=== PATIENT | female | born 1930 | race Caucasian/White ===

== ENCOUNTER 2016-05-28 19:20 | Emergency (ER) | payer MEDICARE ==
[2016-05-28 19:34] VITALS: BP 143/75
--- NOTE | 2016-05-28 19:50 | UC ---
Complaint Female HPI - HPI Summary HPI Summary: The patient comes in today for: 1. Urinary frequency: Onset: Yesterday. Palliative/provocative: Nothing makes her symptoms better or worse. Quality: No pain. Region: Severity: 0/10 Time: Comes and goes. Associated symptoms: Last urinary tract infection--"quite a few years ago." Fevers: None. Urinary urgency: Present. Recent antibiotics: None. * - History Of Current Complaint Chief Complaint: UCGU Stated Complaint: FREQ URINATING Time Seen by Provider: 05/28/16 19:38 Hx Obtained From: Patient - Allergies/Home Medications Allergies/Adverse Reactions: Allergies Allergy/AdvReac Type Severity Reaction Status Date / Time Sulfa Drugs AdvReac Intermediate Vomiting Verified 05/28/16 19:34 Sulfa Antibiotics AdvReac Vomiting Verified 05/28/16 19:34 PMH/Surg Hx/FS Hx/Imm Hx Previously Healthy: No Endocrine History Of: Reports: Diabetes, Thyroid Disease, Hypothyroidism, Dyslipidemia Cardiovascular History Of: Reports: Hypertension Denies: Cardiac Disorders, Pacemaker/ICD, Myocardial Infarction, Congestive Heart Failure, Atrial Fibrillation, Deep Vein Thrombosis, Bleeding Disorders Respiratory History Of: Denies: COPD, Asthma, Bronchitis, Pneumonia, Pulmonary Embolism GI/ History Of: Reports: Gastroesophageal Reflux Denies: Ulcer, Gastrointestinal Bleed, Gall Bladder Disease, Kidney Stones, Diverticulitis, Renal Disease, Urosepsis Neurological History Of: Denies: TIA, CVA, Dementia, Seizures, Migraine Psychological History Of: Reports: Anxiety Denies: Depression, Bipolar Disorder, Schizophrenia, Post Traumatic Stress Disorder Cancer History Of: Denies: Lung Cancer, Colorectal Cancer, Breast Cancer, Prostate Cancer, Cervical Cancer Other History Of: Negative For: HIV, Hepatitis B, Hepatitis C, Anticoagulant Therapy - Surgical History Surgical History: None Surgery Procedure, Year, and Place: THYROID?; TUBAL LIGATION - Family History Known Family History: Positive: Cardiac Disease, Hypertension - Social History Occupation: Retired Alcohol Use: Occasionally Substance Use Type: None Smoking Status (MU): Never Smoked Tobacco Have You Smoked in the Last Year: No - Immunization History Most Recent Influenza Vaccination: 2014 Most Recent Tetanus Shot: pt states up to date Most Recent Pneumonia Vaccination: received in 2011 per pt Review of Systems Constitutional: Negative Skin: Negative Eyes: Negative ENT: Negative Respiratory: Negative Cardiovascular: Negative Gastrointestinal: Negative Genitourinary: Frequency, Urgency All Other Systems Reviewed And Are Negative: Yes Physical Exam Triage Information Reviewed: Yes Appearance: Well-Appearing, No Pain Distress, Well-Nourished Vital Signs: Initial Vital Signs Temp 98.6 F 05/28/16 19:31 Pulse 70 05/28/16 19:31 Resp 12 05/28/16 19:31 BP 143/75 05/28/16 19:31 Vital Signs Reviewed: Yes Eyes: Positive: Conjunctiva Clear. Negative: Discharge ENT: Positive: Hearing grossly normal. Negative: Nasal congestion, Nasal drainage, TM bulging, TM dull, TM red Dental: Negative: Gross Decay/Caries @, Dental Fracture @ Neck: Positive: Supple, Nontender, No Lymphadenopathy. Negative: Nuchal Rigidity Respiratory: Positive: Lungs clear, No respiratory distress, No accessory muscle use. Negative: Crackles, Wheezing Cardiovascular: Positive: RRR, No Murmur Abdomen Description: Positive: Nontender, No Organomegaly, Soft. Negative: Distended, Guarding Musculoskeletal: Positive: Strength Intact, ROM Intact, No Edema Neurological: Positive: Alert, Muscle Tone Normal Psychological: Positive: Normal Response To Family, Age Appropriate Behavior Skin: Negative: rashes, breakdown Diagnostics - Laboratory Diagnostic Studies Completed/Ordered: Urine screen: Specific gravity: 1.005. WBC: (-). Nitrite: (-). Blood: (-). Glucose: (-). Protein: (-) Complaint Female Dx - Course Course Of Treatment: Patient was told of the urine screen results. She was told that there are many reasons why someone can have frequent urination. She states that she has not been able to put in her pessary like she has before. She asked if her not being able to put her pessary in may cause this and she was told that it may. She asked if we can put it back in. She was told that we can try, but it is not something that we usually do here at urgent care, but we could certainly try. However, at this time, she wants to wait to have her pessary doctor put it in. She will call after the . - Differential Dx/Diagnosis Provider Diagnoses: Frequent urination, etiology undetermined. Discharge - Discharge Plan Condition: Stable Disposition: HOME Referrals: Lela Vega MD [Primary Care Provider] - 1 Week (Please see your primary care provider early next week to see how well you are doing. If you get worse, please be seen sooner in the ER or through us.) Additional Instructions: Diagnosis: Frequent urination (urinary track infection and glycosuria ruled out ).
== END 2016-05-28 20:02 | disposition home or self-care (01) ==
LOC: UCEAST 19:20
DX: R35.0 Frequency of micturition (principal); E11.9 Type 2 diabetes mellitus without complications; E03.9 Hypothyroidism, unspecified; E78.5 Hyperlipidemia, unspecified; I10 Essential (primary) hypertension; K21.9 Gastro-esophageal reflux disease without esophagitis; F41.9 Anxiety disorder, unspecified; Z88.2 Allergy status to sulfonamides
CPT/HCPCS: 81003; 99211; G0463

== ENCOUNTER 2017-05-30 09:56 | Day surgery (SDC) | payer MEDICARE ==
[~2017-05-30 09:56] MED LIST: Buffered Lidocaine 0.9% SYRIN* 5 ML/SYR SYRINGE INTRADERM ONE; Cyclopentolate 1% OPTH.SOL* 2 ML BTL ONE; Ketorolac 0.5% OPHTH (NF) 0.5 % 5 ML BTL ONE; Lidocaine 1% MPF* 2 ML VIAL ONE; Neomycin/Polymy/Dex OPHTH.OIN* 3.5 GM ONE; Phenylephrine 2.5% OPTH.SOL* 2 ML BTL ONE; Tetracaine 0.5% OPTH.SOL 4 ML* 1 DROP BTL ONE; Tropicamide 1% OPTH.SOL* BTL ONE
[2017-05-30] MEDS ORDERED: Phenylephr/Ketorolac 1%/0.3% OPH DROP BTL ONE (10:45)
[2017-05-30 12:19] VITALS: BP 123/88
--- NOTE | 2017-05-30 12:50 | OP ---
DATE OF OPERATION/DATE OF DICTATION: 05/30/2017 - [facility] DATE OF : 1930. SURGEON: Dr. Nathaniel Rodriguez. INSPECTION MACHINE TENDER: None. ANESTHESIA: Topical with intravenous sedation. PRE-OP DIAGNOSIS: Cataract, left eye. POST-OP DIAGNOSIS: Cataract, left eye. OPERATIVE PROCEDURE: Phacoemulsification and cataract extraction with posterior chamber intraocular lens implant, left eye. COMPLICATIONS: None. BLOOD LOSS: None. DESCRIPTION OF PROCEDURE: The patient was brought to the operating room and received a small amount of intravenous sedation. A drop of Tetracaine was placed in her left eye. She was prepped and draped in the usual sterile fashion for ophthalmic surgery and attention was directed to the left eye where a speculum was placed. A paracentesis was created at the 5 o'clock position and 0.1 cc of 1 percent preservative-free Lidocaine was injected into the anterior chamber followed by DisCoVisc. The eye was digitally stabilized while a 2.75 mm keratome was used to create a triplanar clear corneal incision at the 3 o'clock position. A continuous curvilinear capsulorrhexis was created with a cystotome and Utrata forceps. BSS on a cannula was used to hydrodissect the lens from the capsule. Phacoemulsification was performed in a divide-and- conquer technique to create four fragments which were removed. Residual cortical material was removed with irrigation and aspiration. DisCoVisc was used to inflate the capsular bag and an AUOOTO 23.0 diopter lens was folded and inserted into the capsular bag. DisCoVisc was removed using irrigation and aspiration. BSS on a cannula was used to hydrate the corneal stroma and seal the wound. At the end of the case the pupil was round and the lens was centered. The eye was of normal pressure and the wound was water tight. The speculum was removed and topical Maxitrol ointment was placed on the surface of the eye. The eye was closed, patched and shielded and the patient was sent to the recovery room in stable condition with post operative instructions and follow-up appointment given. [id number]/CPS #: [id number] MTDD
== END 2017-05-30 12:22 | disposition home or self-care (01) ==
LOC: OREAST 09:56
PROVIDERS: ATTEND Ophthalmology
DX: H25.12 Age-related nuclear cataract, left eye (principal); E11.9 Type 2 diabetes mellitus without complications; Z79.84 Long term (current) use of oral hypoglycemic drugs; Z87.891 Personal history of nicotine dependence; N18.3 Chronic kidney disease, stage 3 (moderate); I12.9 Hypertensive chronic kidney disease with stage 1 through stage 4 chronic kidney disease, or unspecified chronic kidney disease; M35.3 Polymyalgia rheumatica
CPT/HCPCS: A9270-GY; C9447; V2632

== ENCOUNTER 2017-06-06 06:40 | Day surgery (SDC) | payer MEDICARE ==
[~2017-06-06 06:40] MED LIST changes: +Acetaminophen TAB* 325 MG PO PRN; -Cyclopentolate 1% OPTH.SOL* 2 ML BTL ONE; -Ketorolac 0.5% OPHTH (NF) 0.5 % 5 ML BTL ONE; -Lidocaine 1% MPF* 2 ML VIAL ONE; -Neomycin/Polymy/Dex OPHTH.OIN* 3.5 GM ONE; -Phenylephrine 2.5% OPTH.SOL* 2 ML BTL ONE; -Tetracaine 0.5% OPTH.SOL 4 ML* 1 DROP BTL ONE; -Tropicamide 1% OPTH.SOL* BTL ONE
[2017-06-06] MEDS ORDERED: Lidocaine 1% MPF* 2 ML VIAL ONE (07:16)
[2017-06-06] MEDS ORDERED: Cyclopentolate 1% OPTH.SOL* 2 ML BTL ONE (07:16)
[2017-06-06] MEDS ORDERED: Tropicamide 1% OPTH.SOL* BTL ONE (07:16)
[2017-06-06] MEDS ORDERED: Phenylephrine 2.5% OPTH.SOL* 2 ML BTL ONE (07:16)
[2017-06-06] MEDS ORDERED: Tetracaine 0.5% OPTH.SOL 4 ML* 1 DROP BTL ONE (07:16)
[2017-06-06] MEDS ORDERED: Ketorolac 0.5% OPHTH (NF) 0.5 % 5 ML BTL ONE (07:16)
[2017-06-06] MEDS ORDERED: Neomycin/Polymy/Dex OPHTH.OIN* 3.5 GM ONE (07:16)
[2017-06-06] MEDS ORDERED: Phenylephr/Ketorolac 1%/0.3% OPH DROP BTL ONE (07:17)
[2017-06-06] MEDS ORDERED: BSS OPTH.SOL* BTL ONE (07:17)
[2017-06-06] MEDS ORDERED: Propofol* 10 MG/ML 20 ML BTL IV PUSH ONE (08:02)
[2017-06-06] MEDS ORDERED: Lidocaine 2% PF * 5 ML VIAL ONE (08:02)
[2017-06-06 08:49] VITALS: BP 145/76
--- NOTE | 2017-06-06 10:59 | OP ---
OPERATIVE REPORT: DATE OF OPERATION: 06/06/17 - [facility] DATE OF : 30 SURGEON: Dr. Nathaniel Rodriguez. TETRYL NITRATOR OPERATOR: None. ANESTHESIA: Topical with intravenous sedation. PRE-OP DIAGNOSIS: Cataract, right eye. POST-OP DIAGNOSIS: Cataract, right eye. OPERATIVE PROCEDURE: Phacoemulsification and cataract extraction with posterior chamber intraocular lens implant, right eye. COMPLICATIONS: None. BLOOD LOSS: None. DESCRIPTION OF PROCEDURE: The patient was brought to the operating room and received a small amount of intravenous sedation. A drop of Tetracaine was placed in her right eye. She was prepped and draped in the usual sterile fashion for ophthalmic surgery and attention was directed to the right eye where a speculum was placed. A paracentesis was created at the 11 o'clock position and 0.1 cc of 1 percent preservative-free Lidocaine was injected into the anterior chamber followed by DisCoVisc. The eye was digitally stabilized while a 2.75 mm keratome was used to create a triplanar clear corneal incision at the 9 o'clock position. A continuous curvilinear capsulorrhexis was created with a cystotome and Utrata forceps. BSS on a cannula was used to hydrodissect the lens from the capsule. Phacoemulsification was performed in a divide-and- conquer technique to create four fragments which were removed. Residual cortical material was removed with irrigation and aspiration. DisCoVisc was used to inflate the capsular bag and an [id number] 24.0 diopter lens was folded and inserted into the capsular bag. DisCoVisc was removed using irrigation and aspiration. BSS on a cannula was used to hydrate the corneal stroma and seal the wound. At the end of the case the pupil was round and the lens was centered. The eye was of normal pressure and the wound was water tight. The speculum was removed and topical Maxitrol ointment was placed on the surface of the eye. The eye was closed, patched and shielded and the patient was sent to the recovery room in stable condition with post operative instructions and follow-up appointment given. [id number]/CPS #: [id number] BILLIE
== END 2017-06-06 08:57 | disposition home or self-care (01) ==
LOC: OREAST 06:40
PROVIDERS: ATTEND Ophthalmology
DX: H25.041 Posterior subcapsular polar age-related cataract, right eye (principal); E11.9 Type 2 diabetes mellitus without complications; M35.3 Polymyalgia rheumatica; I10 Essential (primary) hypertension; N18.3 Chronic kidney disease, stage 3 (moderate); E03.9 Hypothyroidism, unspecified; F41.9 Anxiety disorder, unspecified; Z79.84 Long term (current) use of oral hypoglycemic drugs
CPT/HCPCS: A9270-GY; C9447; J2704; V2632

== ENCOUNTER 2018-07-29 10:36 | Emergency (ER) | payer MEDICARE ==
[2018-07-29 10:53] VITALS: BP 132/81
--- NOTE | 2018-07-29 11:14 | UC ---
Complaint Female HPI - HPI Summary HPI Summary: 88-year-old female comes in with a chief complaint of one day of UTI symptoms. She's had increased urinary urgency and frequency and burning with urination. She's also had some low back pain. No fevers or chills. She does get some suprapubic discomfort when she urinates when she is not urinating she does not have suprapubic discomfort. She drank a lot of water to try to help her symptoms. Pulmonary month ago she had a urinary tract infection and she was treated with Macrobid successfully. - History Of Current Complaint Chief Complaint: UCGU Stated Complaint: BLADDAR ISSUES Time Seen by Provider: 07/29/18 10:58 Pain Intensity: 0 - Allergies/Home Medications Allergies/Adverse Reactions: Allergies Allergy/AdvReac Type Severity Reaction Status Date / Time Sulfa (Sulfonamide Allergy n/v Verified 07/29/18 10:53 Antibiotics) sulfamethoxazole Allergy n/v Verified 07/29/18 10:53 [From Bactrim] trimethoprim [From Bactrim] Allergy n/v Verified 07/29/18 10:53 Home Medications: Home Medications Polyethylene Glycol 3350 [Miralax] 17 gm PO 07/29/18 [History] metFORMIN* [Glucophage 500 MG TAB *] 500 mg PO DAILY 07/29/18 [History Confirmed 07/29/18] PMH/Surg Hx/FS Hx/Imm Hx Previously Healthy: Yes Endocrine History: Diabetes, Hypothyroidism, Dyslipidemia Cardiovascular History: Hypertension Other History Of: Negative For: HIV, Hepatitis B, Hepatitis C, Anticoagulant Therapy - Surgical History Surgical History: Yes Surgery Procedure, Year, and Place: THYROID?; TUBAL LIGATION - Family History Known Family History: Positive: Cardiac Disease, Hypertension - Social History Alcohol Use: Daily Alcohol Amount: socially Substance Use Type: None Smoking Status (MU): Never Smoked Tobacco Amount Used/How Often: pack a day for 10 yrs Have You Smoked in the Last Year: No - Immunization History Most Recent Influenza Vaccination: 2014 Most Recent Tetanus Shot: pt states up to date Most Recent Pneumonia Vaccination: received in 2011 per pt Review of Systems All Other Systems Reviewed And Are Negative: Yes Constitutional: Positive: Negative Skin: Positive: Negative Eyes: Positive: Negative ENT: Positive: Negative Respiratory: Positive: Negative Cardiovascular: Positive: Negative Gastrointestinal: Positive: Other - SEE HPI Genitourinary: Positive: Dysuria, Frequency, Urgency Motor: Positive: Negative Neurovascular: Positive: Negative Musculoskeletal: Positive: Negative Neurological: Positive: Negative Psychological: Positive: Negative Is Patient Immunocompromised?: No Physical Exam Triage Information Reviewed: Yes Appearance: Well-Appearing, No Pain Distress, Well-Nourished Vital Signs: Initial Vital Signs Temp 97.4 F 07/29/18 10:48 Pulse 73 07/29/18 10:48 Resp 18 07/29/18 10:48 BP 132/81 07/29/18 10:48 Pulse Ox 97 07/29/18 10:48 Vital Signs Reviewed: Yes Eye Exam: Normal Eyes: Positive: Conjunctiva Clear Neck: Positive: Supple Respiratory: Positive: Lungs clear, Normal breath sounds, No respiratory distress Cardiovascular: Positive: RRR Abdomen Description: Positive: Nontender, Soft, Other: - MILD LOW BACK TENDERNESS TO PALPATION Bowel Sounds: Positive: Present Musculoskeletal: Positive: Strength Intact, ROM Intact Neurological: Positive: Alert, Muscle Tone Normal Psychological: Positive: Normal Response To Family, Age Appropriate Behavior Skin Exam: Normal Complaint Female Dx - Differential Dx/Diagnosis Provider Diagnosis: UTI (urinary tract infection) Discharge - Sign-Out/Discharge Documenting (check all that apply): Patient Departure All imaging exams completed and their final reports reviewed: No Studies - Discharge Plan Condition: Stable Disposition: HOME Prescriptions: Nitrofurantoin Monohyd/M-Cryst [Macrobid 100 mg Capsule] 100 mg PO BID #14 cap Patient Education Materials: Urinary Tract Infection in Women (ED) Referrals: Lela Vega MD [Primary Care Provider] - Additional Instructions: FOLLOW UP WITH YOUR DOCTOR IF NOT COMPLETELY IMPROVED. GET RECHECKED SOONER IF YOUR CONDITION WORSENS; FEVER, PAIN, YOU FEEL ILL OR ANY QUESTIONS OR CONCERNS. - Billing Disposition and Condition Condition: STABLE Disposition: Home
--- NOTE | 2018-07-30 16:07 | UC ---
- Progress Note Progress Note: urine with + proteus d/c Macrobid Rx Augmentin sent to pharmacy final sensitivity pending please update pt f/u with PCP this week Course/Dx - Diagnoses Provider Diagnoses: UTI (urinary tract infection) Discharge - Sign-Out/Discharge Documenting (check all that apply): Post-Discharge Follow Up All imaging exams completed and their final reports reviewed: No Studies - Discharge Plan Condition: Stable Disposition: HOME Prescriptions: Amoxicillin/Clavulanate TAB* [Augmentin TAB 875*] 875 mg PO BID #14 tab Nitrofurantoin Monohyd/M-Cryst [Macrobid 100 mg Capsule] 100 mg PO BID #14 cap Patient Education Materials: Urinary Tract Infection in Women (ED) Referrals: Lela Vega MD [Primary Care Provider] - Additional Instructions: FOLLOW UP WITH YOUR DOCTOR IF NOT COMPLETELY IMPROVED. GET RECHECKED SOONER IF YOUR CONDITION WORSENS; FEVER, PAIN, YOU FEEL ILL OR ANY QUESTIONS OR CONCERNS. - Billing Disposition and Condition Condition: STABLE Disposition: Home
--- NOTE | 2018-07-31 18:00 | UC ---
- Progress Note Progress Note: Pt on Augmentiin sensitive to Zosyn. please call pt and see how feeling sivan 07/31/18 Course/Dx - Diagnoses Provider Diagnoses: UTI (urinary tract infection) Discharge - Sign-Out/Discharge Documenting (check all that apply): Post-Discharge Follow Up All imaging exams completed and their final reports reviewed: No Studies - Discharge Plan Condition: Stable Disposition: HOME Prescriptions: Amoxicillin/Clavulanate TAB* [Augmentin TAB 875*] 875 mg PO BID #14 tab Nitrofurantoin Monohyd/M-Cryst [Macrobid 100 mg Capsule] 100 mg PO BID #14 cap Patient Education Materials: Urinary Tract Infection in Women (ED) Referrals: Lela Vega MD [Primary Care Provider] - Additional Instructions: FOLLOW UP WITH YOUR DOCTOR IF NOT COMPLETELY IMPROVED. GET RECHECKED SOONER IF YOUR CONDITION WORSENS; FEVER, PAIN, YOU FEEL ILL OR ANY QUESTIONS OR CONCERNS. - Billing Disposition and Condition Condition: STABLE Disposition: Home
== END 2018-07-29 11:26 | disposition home or self-care (01) ==
LOC: UCEAST 10:36
DX: N39.0 Urinary tract infection, site not specified (principal); B96.4 Proteus (mirabilis) (morganii) as the cause of diseases classified elsewhere; Z88.2 Allergy status to sulfonamides; Z88.1 Allergy status to other antibiotic agents; E11.9 Type 2 diabetes mellitus without complications; Z79.84 Long term (current) use of oral hypoglycemic drugs; I10 Essential (primary) hypertension
CPT/HCPCS: 81003; 87077; 87086; 87186; 99212; G0463

== ENCOUNTER 2019-04-21 08:56 | Emergency (ER) | payer MEDICARE ==
--- OUTSIDE RECORDS SUMMARY | 2019-04-21 09:06 | XMS REPORT | Continuity of Care Document ---
:1930 External Reference #:[id number] Author Name Nathaniel Rodriguez M.D. Address [address] [place] [address] Care Team Providers Name Role Phone Cristina Vega MD - Internal Care Team Information Laser Systems Engineer [phone] Medicine Problems Active Problems Provider Date Polymyalgia rheumatica Cristina Vega MD Onset: 07/06/2012 Type 2 diabetes mellitus Cristina Vega MD Onset: 12/03/2009 Benign essential hypertension Cristina Vega MD Onset: 12/03/2009 Chronic kidney disease stage 3 Cristina Vega MD Onset: 02/13/2009 Social History Type Date Description Comments Sex Unknown ETOH Use Occasionally consumes alcohol Tobacco Use Start: Unknown Patient has never smoked Smoking Status Reviewed: 03/25/19 Patient has never smoked Allergies, Adverse Reactions, Alerts Active Allergies Reaction Severity Comments Date Sulfamethoxazole / Trimethoprim Unknown 08/27/2009 Sulfa Antibiotics 05/24/2017 Medications Active Medications SIG Qnty Indications Ordering Provider Date Felodipine ER 1 by mouth every 90tabs Gary REYES, 12/05/2016 2.5mg day Cristina Tablets ER 24HR Repaglinide one by mouth in 90tabs Gary REYES, 11/14/2014 0.5mg Tablets Am - 2 at noon Cristina and 1 at night Alprazolam take one tablet 30tabs Gary REYES, 06/02/2014 0.25mg Tablets by mouth twice a Cristina day as needed maximum daily dose = two tablets Mirtazapine Take One Tablet 30tabs F41.9 Gary REYES, 06/02/2014 7.5mg Tablets By Mouth At Cristina Bedtime Calcium Carbonate 1 by mouth bid Lexis Solitario MD 07/22/2013 1250(500Ca) mg Tablets Levothyroxine Sodium Take One Tablet carly Vega MD, 11/22/2012 By Mouth Every Cristina 50mcg Tablets Day Lovastatin Take One Tablet carly Vega MD, 08/02/2012 40mg Tablets By Mouth At Cristina Bedtime Omeprazole take one capsule Taylorcapfilipe R11.0 Gary REYES, 06/21/2010 40mg Capsules by mouth every Cristina DR jose juan Benicar Take One Tablet 90jing Vega MD, 07/29/2009 20mg Tablets By Mouth Every Cristina Day Colace 1 by mouth up to Unknown 100mg Capsules 3 times a day as needed for constipation. Immunizations CPT Code Status Date Vaccine Lot # [id number] Given 11/04/2016 Influenza Virus Vaccine, Quadrivalent, Split, Preservative Free 34736 Given 11/14/2014 Influenza Virus Vaccine, Quadrivalent, Split, Preservative Free 24008 Given 11/18/2013 Influenza Virus Vaccine, Quadrivalent, Split, Preservative Free 58496 Given 06/17/2013 Pneumococcal Conjugate Vaccine 13 Valent For Intramuscular Use 19187 Given 11/22/2012 Influenza Virus Vaccine Split Virus Use For Individual 3Yr Older Q2038 Given 11/05/2011 Influenza Vaccine (Fluzone) Administered Age 3 And Older Q2035 Given 11/02/2010 Influenza Virus Vaccine Split Virus 3 Years Of Age And Older 46949 Given 11/06/2009 Influenza Virus Split 3 Yrs And Above For Intramuscular Use 33390 Given 01/29/2009 Influenza Vaccine, Pandemic Formulation, H1N1 00548 Given 11/25/2008 Influenza Virus Split 3 Yrs And Above For Intramuscular Use 38879 Given 12/10/2007 Influenza Virus Split 3 Yrs And Above For Intramuscular Use 10427 Given 12/10/2007 Influenza Virus Split 3 Yrs And Above For Intramuscular Use 99773 Given 12/12/2006 Influenza Virus Split 3 Yrs And Above For Intramuscular Use 94482 Given 12/12/2006 Influenza Virus Split 3 Yrs And Above For Intramuscular Use 70232 Given 06/05/2006 Td Preservative Free For Use In Individuals 7 Yrs Or Older Vital Signs Date Vital Result Comment 03/25/2019 1:28pm Intraocular Pressure Right Eye 13 mmHg Intraocular Pressure Left Eye 13 mmHg 02/16/2018 3:45pm Intraocular Pressure Right Eye 15 mmHg Intraocular Pressure Left Eye 15 mmHg Results Description No Information Available Procedures Date Code Description Status 03/25/2019 55605 Ophthalmoscopy Subsequent Completed 03/25/2019 37497 Sensorimotor Examination W/Mult Measurements Ocular Completed Deviation 03/25/2019 51996 Refraction Completed 03/25/2019 19228 Eye Exam Est Comprehensive Completed Medical Devices Description No Information Available Encounters Description No Information Available Assessments Date Code Description Provider 03/25/2019 E11.9 Type 2 diabetes mellitus without complications Nathaniel Rodriguez M.D. 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 03/25/2019 Z96.1 Presence of intraocular lens Nathaniel Rodriguez M.D. Plan of Treatment 03/25/2019 - Nathaniel Rodriguez M.D.E11.9 Type 2 diabetes mellitus without [id number] Fourth [trochlear] nerve palsy, right eyeZ96.1 Presence of intraocular lensFollow up:1 yr Functional Status Description No Information Available Mental Status Description No Information Available Referrals Description No Information Available
--- OUTSIDE RECORDS SUMMARY | 2019-04-21 09:06 | XMS REPORT | Continuity of Care Document ---
:1930 External Reference #:[id number] Author Name Nathaniel Rodriguez M.D. Address 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 Medicine Problems Active Problems Provider Date Polymyalgia [...] CPT Code Status Date Vaccine Lot # [id number] Given 11/04/2016 Influenza Virus Vaccine, Quadrivalent, Split, Preservative Free 05809 Given 11/14/2014 Influenza Virus Vaccine, Quadrivalent, Split, Preservative Free 55989 Given 11/18/2013 Influenza Virus Vaccine, Quadrivalent, Split, Preservative Free 95617 Given 06/17/2013 Pneumococcal Conjugate Vaccine 13 Valent For Intramuscular Use 77711 Given 11/22/2012 Influenza Virus Vaccine Split Virus Use For Individual 3Yr Older Q2038 Given 11/05/2011 Influenza Vaccine (Fluzone) Administered Age 3 And Older Q2035 Given 11/02/2010 Influenza Virus Vaccine Split Virus 3 Years Of Age And Older 20698 Given 11/06/2009 Influenza Virus Split 3 Yrs And Above For Intramuscular Use 01333 Given 01/29/2009 Influenza Vaccine, Pandemic Formulation, H1N1 43607 Given 11/25/2008 Influenza Virus Split 3 Yrs And Above For Intramuscular Use 62215 Given 12/10/2007 Influenza Virus Split 3 Yrs And Above For Intramuscular Use 07294 Given 12/10/2007 Influenza Virus Split 3 Yrs And Above For Intramuscular Use 40012 Given 12/12/2006 Influenza Virus Split 3 Yrs And Above For Intramuscular Use 62760 Given 12/12/2006 Influenza Virus Split 3 Yrs And Above For Intramuscular Use 61497 Given 06/05/2006 Td Preservative Free For Use In Individuals 7 Yrs Or Older Vital Signs Date Vital Result Comment 03/25/2019 1:28pm Intraocular Pressure Right Eye 13 mmHg Intraocular Pressure Left Eye 13 mmHg 02/16/2018 3:45pm Intraocular Pressure Right Eye 15 mmHg Intraocular Pressure Left Eye 15 mmHg Results Description No Information Available Procedures Description No Information Available Medical Devices Description No Information Available Encounters Description No Information Available Assessments Description No Information Available Plan of Treatment No Information Available Functional Status Description No Information Available Mental Status Description No Information Available Referrals Description No Information Available
--- OUTSIDE RECORDS SUMMARY | 2019-04-21 09:06 | XMS REPORT | Continuity of Care Document ---
:1930 External Reference #:[id number] Author Name Cierra Tong NP (transmitted by agent of provider Violet Martinez) Address [address], [place] [address] Care Team Providers Name Role Phone Lela Vega MD - Internal Care Team Information Director Of Perioperative Services Medicine Rhonda Saldana MD - Internal Care Team Information Director Of Perioperative Services Medicine Rhonda Palomares MD - Care Team Information Director Of Perioperative Services [phone] Rheumatology Benson Sanders MD - Hematology Care Team Information Director Of Perioperative Services Juliano Parra MD - Urology Care Team Information Director Of Perioperative Services [phone] Problems Active Problems Provider Date Type 2 diabetes mellitus Lela Vega M.D. Onset: 12/03/2009 Chronic kidney disease stage 3 Lela Vega M.D. Onset: 02/13/2009 Benign essential hypertension Lela Vega M.D. Onset: 12/03/2009 Irritable bowel syndrome characterized by Lela Vega M.D. Onset: 06/15 constipation Anxiety Lela Vega M.D. Onset: 03/07/2019 Social History Type Date Description Comments Sex Unknown Tobacco Use Start: Unknown End: Former Cigarette Smoker Smoked about 1 PPD Unknown for about 20 years. Quit about 1979 ETOH Use Drinks Alcoholic 1-2 drinks a week Beverages Occasionally Tobacco Use Start: Unknown End: Patient is a former Smoked 1ppd Unknown smoker Smoking Status Reviewed: 04/16/19 Patient is a former Smoked 1ppd smoker Exercise Exercises sporadically Type/Frequency Allergies, Adverse Reactions, Alerts Active Allergies Reaction Severity Comments Date Bactrim UNKNOWN 08/27/2009 Sulfa SICK ALL OVER Moderate 11/05/2009 Medications Active Medications SIG Qnty Indications Ordering Provider Date Dicyclomine HCL Take One Capsule 30caps Shanice Salazar MD 06/22/2018 10mg By Mouth Three Capsules Times A Day as Needed Metformin HCL ER Take One Tablet 30tabs E11.65 [facility], 2018 500mg By Mouth Every M.D. Tablets ER 24HR Day E11.9 Olmesartan Medoxomil Take One Tablet 90tabs I10 [facility], 2018 20mg By Mouth Every M.D. Tablets Day Felodipine ER Take One Tablet 90tabs I10 [facility], 12/05/2016 2.5mg By Mouth Every M.D. Tablets ER 24HR Day Onetouch Ultra Blue for use bid E 180units E11.9 [facility], 2016 11.9 M.D. Strips Repaglinide Take 1 Tab Before 120tabs E11.65 [facility], 11/14/2014 0.5mg Tablets Lunch And 1 Tab. M.D. Before Dinner E11.9 Alprazolam take one tablet by 30tabs [facility], 06/02/2014 0.25mg Tablets mouth twice a day M.D. as needed maximum daily dose = two tablets Mirtazapine Take One Tablet By 30tabs F41.9 [facility], 06/02/2014 7.5mg Tablets Mouth AT Bedtime M.D. Onetouch Ultra 2 check blood sugar 1units E11.65 [facility], 2013 W/Device twice a day or as M.D. Kit directed Onetouch Lancets for use twice a day 180units [facility], 2013 [facility] or as directed M.DDieter E11.9 Calcium 500 1 by mouth bid Lexis Solitario M.D. 07/22/2013 500mg Tablets Levothyroxine Sodium Take One Tablet By 90tabs [facility] [place], 2012 Mouth Every Day M.D. 50mcg Tablets Lovastatin Take One Tablet By 90tabs [facility], 08/02/2012 40mg Tablets Mouth AT Bedtime M.D. Multivitamin 1 PO qd [facility], 03/21/2011 M.D. Omeprazole Take One Capsule By 90caps R11.0 [facility], 06/21/2010 40mg Capsules Mouth Every Day M.D. Vitamin D 1 po qd 60caps Unknown 1000Iu Capsules Miralax dissolve 1 Unknown [id number] Packet teaspoonlul powder in 8 onces of water. take daily as needed History Medications Doxycycline Hyclate 1 tab by mouth 10tabs Lela Cotton, 02/28/2019 - twice a day for M.D. 03/06/2019 100mg Tablets 5 days Cipro 1 tablet every 10tabs N39.0 Jigar Ross MD 02/23/2019 - 250mg Tablets 12 hours for 5 03/01/2019 days, then stop Doxycycline Hyclate 1 tab by mouth 14tabs N39.0 [facility], 2018 - twice a day for M.D. 02/23/2019 100mg Tablets 7 days Macrobid 1 tab by mouth 10tabs N39.0 [facility], 2019 - 100mg twice a day x 5 M.D. 02/09/2019 Tablets days Levofloxacin 1 by mouth on 4tabs [facility], 11/13/2018 - 500mg the first day, M.D. 2019 Tablets then 1/2 by mouth every day for the next 6 days Ofloxacin 2 drops each 10ml H10.023 Samson Rivers NP 11/08/2018 - (Ophthalmic) eye four times 11/12/2018 0.3% daily for 7 Solution days. Doxycycline Hyclate 1 tab by mouth 14tabs Lela Cotton, 11/06/2018 - twice a day for M.D. 11/17/2018 100mg Tablets 7 days Jane Ruffin take one 30caps [facility], 11/06/2018 - 100mg capsule every 8 M.D. 12/14/2018 Capsules hours as needed Immunizations CPT Code Status Date Vaccine Reaction Lot # [id number] Given 12/18/2018 Fluzone High Dose 91133 Given 11/06/2017 Fluzone High Dose 77831 Given 11/04/2016 Influenza Virus Vaccine, [id number] Quadrivalent, Split, Preservative Free 79657 Given 01/04/2016 Influ Virus Vaccine, no immediate reaction [id number] Quadrivalent, Split Virus, noted ... [place] [address] Given 11/14/2014 Influenza Virus Vaccine, [id number] Quadrivalent, Split, Preservative Free 78506 Given 11/18/2013 Influenza Virus Vaccine, [id number] Quadrivalent, Split, Preservative Free 22760 Given 06/17/2013 Pneumococcal Conjugate [id number] Vaccine 13 Valent For Intramuscular Use 01383 Given 11/22/2012 Flu Vaccine Split Virus [id number] Preservative Free For Indiv 3Yr Older Q2038 Given 11/05/2011 Fluzone Vaccine [id number] Given 11/02/2010 Afluria Vaccine [id number] 25837 Given 11/06/2009 Influenza Virus 3Yrs & Over 32314 Given 01/29/2009 Influenza Virus Vaccine, Pandemic Formulation 30732 Given 11/25/2008 Influenza Virus 3Yrs & Over 93922 Given 12/10/2007 Influenza Virus 3Yrs & Over 25207 Given 12/10/2007 Influenza Virus 3Yrs & Over 86630 Given 12/12/2006 Influenza Virus 3Yrs & Over 04510 Given 12/12/2006 Influenza Virus 3Yrs & Over 53582 Given 06/05/2006 Tetanus And Diptheria (Td) For Adult Use Preservative Free Vital Signs Date Vital Result Comment 04/16/2019 1:43pm Height 59 inches 4'11" Weight 124.00 lb Heart Rate 99 /min BP Systolic Sitting 118 mmHg BP Diastolic Sitting 64 mmHg Body Temperature 99.1 F O2 % BldC Oximetry 94 % BMI (Body Mass Index) 25.0 kg/m2 03/07/2019 3:20pm Height 59 inches 4'11" Weight 123.00 lb Heart Rate 83 /min BP Systolic 123 mmHg BP Diastolic 69 mmHg O2 % BldC Oximetry 95 % BMI (Body Mass Index) 24.8 kg/m2 Results Test Acquired Date Facility Test Result H/L Range Note Order 04/16/2019 [facility] Ear Irrigation <pending> Laboratory test 04/16/2019 [facility] Influenza A & B <pending> finding [address] [place] [address] [phone] Basic Metabolic 04/09/2019 [facility] Sodium 133 mmol/L Low 135-[address] [place] [address] [phone] Potassium 4.9 mmol/L Normal 3.5-5.0 Chloride 100 mmol/L Low 101-111 Co2 Carbon Dioxide 26 mmol/L Normal 22-32 Anion Gap 7 mmol/L Normal 2-11 Glucose 103 mg/dL High 70-100 Blood Urea Nitrogen 18 mg/dL Normal 6-24 Creatinine 1.06 mg/dL High 0.51-0.95 BUN/Creatinine Ratio 17.0 Normal 8-20 Calcium 9.6 mg/dL Normal 8.6-10.3 Egfr Non- 48.8 >60 Egfr 59.1 >60 1 CBC Auto 03/07/2019 [facility] White Blood 8.3 10^3/uL Normal 3.5-10.[address] [place] [address] [phone] Red Blood Count 3.74 10^6/uL Normal 3.70-4.87 Hemoglobin 11.9 g/dL Low 12.0-16.0 Hematocrit 35 % Normal 35-47 Mean Corpuscular Volume 93 fL Normal 80-97 Mean Corpuscular Hemoglobin 32 pg High 27-31 Mean Corpuscular HGB Conc 34 g/dL Normal 31-36 Red Cell Distribution Width 13 % Normal 10-15 Platelet Count 318 10^3/uL Normal 150-450 Mean Platelet Volume 8.5 fL Normal 7.4-10.4 Abs Neutrophils 5.1 10^3/uL Normal 1.5-7.7 Abs Lymphocytes 2.5 10^3/uL Normal 1.0-4.8 Abs Monocytes 0.5 10^3/uL Normal 0-0.8 Abs Eosinophils 0.1 10^3/uL Normal 0-0.6 Abs Basophils 0.0 10^3/uL Normal 0-0.2 Abs Nucleated RBC 0.0 10^3/uL Granulocyte % 61.8 % Lymphocyte % 30.4 % Monocyte % 6.6 % Eosinophil % 0.6 % Basophil % 0.6 % Nucleated Red Blood Cells % 0.1 Iron & Iron Binding 03/07/2019 [facility] Iron 44 g/dL Low 50-[address] [place] [address] [phone] Unsaturated Iron Binding < 360 g/dL Total Iron Binding Capacity 375 g/dL Normal 250-450 Transferrin 268 mg/dL Normal 203-362 % Iron Saturation 12 % Low 15-55 Basic Metabolic 03/07/2019 [facility] Sodium 139 mmol/L Normal 135-[address] [place] [address] [phone] Potassium 4.5 mmol/L Normal 3.5-5.0 Chloride 105 mmol/L Normal 101-111 Co2 Carbon Dioxide 26 mmol/L Normal 22-32 Anion Gap 8 mmol/L Normal 2-11 Glucose 128 mg/dL High 70-100 Blood Urea Nitrogen 31 mg/dL High 6-24 Creatinine 1.66 mg/dL High 0.51-0.95 BUN/Creatinine Ratio 18.7 Normal 8-20 Calcium 9.5 mg/dL Normal 8.6-10.3 Egfr Non- 29.1 >60 Egfr 35.2 >60 2 Laboratory test finding 03/07/2019 [facility] Hemoglobin A1c 7.7 High 5 -7 Ua Routine 2019 [facility] Ua Specific [place]ug[place] 1.020 Ua PH 5 Ua Color dark yellow Ua Appera cloudy Ua WBC large Ua Protein norm Ua Glucose norm Ua Ketones large Ua Bilirubin neg Ua Urobilinogen neg Ua Nitrite positive Ua Occult Blood large Urine Culture And 2019 [facility] Urine SEE RESULT [address] [place] [address] [phone] CBC Auto Diff 11/12/2018 [facility] White Blood 13.2 High 3.5- [address] Count 10^3/uL 0.8 [place] [address] [phone] Red Blood Count 3.70 10^6/uL Normal 3.70-4.87 Hemoglobin 11.7 g/dL Low 12.0-16.0 Hematocrit 34 % Low 35-47 Mean Corpuscular Volume 93 fL Normal 80-97 Mean Corpuscular Hemoglobin 32 pg High 27-31 Mean Corpuscular HGB Conc 34 g/dL Normal 31-36 Red Cell Distribution Width 13 % Normal 10-15 Platelet Count 435 10^3/uL Normal 150-450 Mean Platelet Volume 7.4 fL Normal 7.4-10.4 Abs Neutrophils 9.0 10^3/uL High 1.5-7.7 Abs Lymphocytes 3.1 10^3/uL Normal 1.0-4.8 Abs Monocytes 0.8 10^3/uL Normal 0-0.8 Abs Eosinophils 0.1 10^3/uL Normal 0-0.6 Abs Basophils 0.1 10^3/uL Normal 0-0.2 Abs Nucleated RBC 0.0 10^3/uL Granulocyte % 68.7 % Lymphocyte % 23.4 % Monocyte % 6.4 % Eosinophil % 0.9 % Basophil % 0.6 % Nucleated Red Blood Cells % 0.1 Laboratory test 11/12/2018 [facility] C Reactive 97.05 mg/L High <8.01 finding [address] [facility] [place] [address] [phone] Basic Metabolic 11/12/2018 [facility] Sodium 132 mmol/L Low 135-145 Panel [address] [place] [address] [phone] Chloride 98 mmol/L Low 101-111 Co2 Carbon Dioxide 24 mmol/L Normal 22-32 Glucose 252 mg/dL High 70-100 Blood Urea Nitrogen 23 mg/dL Normal 6-24 Creatinine 1.12 mg/dL High 0.51-0.95 BUN/Creatinine Ratio 20.5 High 8-20 Calcium 9.8 mg/dL Normal 8.6-10.3 Egfr Non- 45.9 >60 Egfr 55.6 >60 4 Potassium 5.2 mmol/L High 3.5-5.0 Anion Gap 10 mmol/L Normal 2-11 Laboratory test 11/06/2018 [facility] Influenza A & B <pending> finding [address] [place] [address] [phone] Lipid Profile 10/22/2018 [facility] Triglycerides 231 mg/dL 5 (Trig/Chol/HDL) [address] [place] [address] [phone] Cholesterol 191 mg/dL 6 HDL Cholesterol 66.6 mg/dL 7 LDL Cholesterol 78 mg/dL 8 Comp Metabolic 10/22/2018 [facility] Sodium 135 mmol/L Normal 135-145 Panel [address] [place] [address] [phone] Potassium 5.0 mmol/L Normal 3.5-5.0 Chloride 103 mmol/L Normal 101-111 Co2 Carbon Dioxide 24 mmol/L Normal 22-32 Anion Gap 8 mmol/L Normal 2-11 Glucose 198 mg/dL High 70-100 Blood Urea Nitrogen 20 mg/dL Normal 6-24 Creatinine 1.14 mg/dL High 0.51-0.95 BUN/Creatinine Ratio 17.5 Normal 8-20 Calcium 9.7 mg/dL Normal 8.6-10.3 Total Protein 6.4 g/dL Normal 6.4-8.9 Albumin 4.3 g/dL Normal 3.2-5.2 Globulin 2.1 g/dL Normal 2-4 Albumin/Globulin Ratio 2.0 Normal 1-3 Total Bilirubin 0.30 mg/dL Normal 0.2-1.0 Alkaline Phosphatase 67 U/L Normal 34-104 Alt 16 U/L Normal 7-52 Ast 20 U/L Normal 13-39 Egfr Non- 45.0 >60 Egfr 54.4 >60 9 Laboratory test 10/22/2018 [facility] Hemoglobin A1c 7.4 % High 4.0-5.[address] (Glyco HGB) [place] [address] [phone] Urine 10/22/2018 [facility] Ur Microalbumin < 15.[address] (mg/L) mg/[place] [address] [phone] Urine Creatinine 82.44 mg/dL Urine Microalbumin/Creatinine TNP <31 11 Laboratory test 10/22/2018 [facility] Vitamin B12 686 pg/mL Normal 180-914 [address] [place] [address] [phone] TSH (Thyroid Stim Horm) 5.15 mcIU/mL Normal 0.34-5.60 1 Because ethnic data is not always readily available, this report includes an eGFR for both -Americans and non- Americans. The National Kidney Disease Education Program (NKDEP) does not endorse the use of the MDRD equation for patients that are not between the ages of 18 and 70, are , have extremes of body size, muscle mass, or nutritional status, or are non- or non-. According to the National Kidney Foundation, irrespective of diagnosis, the stage of the disease is based on the level of kidney function: Stage Description GFR(mL/min/1.73 m(2)) 1 Kidney damage with normal or decreased GFR 90 2 Kidney damage with mild decrease in GFR 60-89 3 Moderate decrease in GFR 30-59 4 Severe decrease in GFR 15-29 5 Kidney failure <15 (or dialysis) 2 Because ethnic data is not always readily available, this report includes an eGFR for both -Americans and non- Americans. The National Kidney Disease Education Program (NKDEP) does not endorse the use of the MDRD equation for patients that are not between the ages of 18 and 70, are , have extremes of body size, muscle mass, or nutritional status, or are non- or non-. According to the National Kidney Foundation, irrespective of diagnosis, the stage of the disease is based on the level of kidney function: Stage Description GFR(mL/min/1.73 m(2)) 1 Kidney damage with normal or decreased GFR 90 2 Kidney damage with mild decrease in GFR 60-89 3 Moderate decrease in GFR 30-59 4 Severe decrease in GFR 15-29 5 Kidney failure <15 (or dialysis) 3 SEE RESULT BELOW Name: MICHELLE SIU : [address]: Lela Vega MD Acct: [id number] Unit: [id number] AGE: 89 Location: [facility] Re02/07/19 SEX: F Status: REG REF SPEC: [id number] BACILIO: 02/07/19-[address] [facility] [address]: Lela Vega MD REQ: [id number] RECD: 02/08/19 STATUS: COMP _ SOURCE: URINE SPDESC: ORDERED: Urine Culture COMMENTS: ORDERED AGAIN PER [id number] Urine Source: Random Procedure Result Reported Site Urine Culture Final 02/10/19- 0832 ML Organism 1 ENTEROBACTER CLOACAE [place] Count >100,000 (Many) CFU/ML 1. ENTEROBACTER CLOACAE M.I.C. RX --------- ------ Cefazolin >=64 R Cefepime <=1 S Ceftriaxone <=1 S Ciprofloxacin <=0.25 S Gentamicin <=1 S Levofloxacin <=0.12 S Meropenem <=0.25 S Nitrofurantoin 128 R Tetracycline 2 S Pipercillin/Tazobactam <=4 S Trimethoprim/Sulfamethoxazole <=20 S Amoxicillin/Clavulanic Acid >=32 R Aztreonam <=1 S Contact the Microbiology Department for any additional antibiotic reporting. * [facility] - Main Lab . END OF REPORT DEPARTMENT OF PATHOLOGY, [address] [place] [address] Swapnil Reilly M.D. Director [facility] # [id number] 4 Because ethnic data is not always readily available, this report includes an eGFR for both -Americans and non- Americans. The National Kidney Disease Education Program (NKDEP) does not endorse the use of the MDRD equation for patients that are not between the ages of 18 and 70, are , have extremes of body size, muscle mass, or nutritional status, or are non- or non-. According to the National Kidney Foundation, irrespective of diagnosis, the stage of the disease is based on the level of kidney function: Stage Description GFR(mL/min/1.73 m(2)) 1 Kidney damage with normal or decreased GFR 90 2 Kidney damage with mild decrease in GFR 60-89 3 Moderate decrease in GFR 30-59 4 Severe decrease in GFR 15-29 5 Kidney failure <15 (or dialysis) 5 Desirable: <150 Borderline High: 150-199 High: 200-499 Very High: >500 6 Desirable: <200 Borderline High: 200-239 High: >239 7 Low: <40 Desirable: 40-60 High: >60 8 Desirable: <100 Near Optimal: 100-129 Borderline High: 130-159 High: 160-189 Very High: >189 9 Because ethnic data is not always readily available, this report includes an eGFR for both -Americans and non- Americans. The National Kidney Disease Education Program (NKDEP) does not endorse the use of the MDRD equation for patients that are not between the ages of 18 and 70, are , have extremes of body size, muscle mass, or nutritional status, or are non- or non-. According to the National Kidney Foundation, irrespective of diagnosis, the stage of the disease is based on the level of kidney function: Stage Description GFR(mL/min/1.73 m(2)) 1 Kidney damage with normal or decreased GFR 90 2 Kidney damage with mild decrease in GFR 60-89 3 Moderate decrease in GFR 30-59 4 Severe decrease in GFR 15-29 5 Kidney failure <15 (or dialysis) 10 Therapeutic target for the treatment of diabetes mellitus patients is <7% HBA1C, and in selective patients <6.0%. Please refer to [place] [employer] diabetic care guidelines for further information. 11 Unable to calculate due to low microalbumin 12 Normal Range 180 to 914 Indeterminate Range 145 to 180 Deficient Range <145 Procedures Date Code Description Status 03/25/2019 324776782 Diabetic Retinal Eye Exam Completed 11/01/2016 03193080 Mammogram Completed 01/12/2016 [id number] Bone Mineral Density Test Completed 11/12/2015 680481662 Diabetic Retinal Eye Exam Completed 11/08/2013 137816275 Bone Mineral Density Test Completed 07/06/2013 841036324 Diabetic Retinal Eye Exam Completed 07/06/2012 [id number] Diabetic Retinal Eye Exam Completed 10/28/2011 [id number] Bone Mineral Density Test Completed 10/28/2011 280839581 Diabetic Retinal Eye Exam Completed 08/30/2011 52344050 Mammogram Completed 08/22/2008 186074412 Bone Mineral Density Test Completed 07/15/2008 74559754 Mammogram Completed 06/21/2006 74994038 Colonoscopy Completed Medical Devices Description No Information Available Encounters Type Date Location Provider Dx Diagnosis Office Visit 04/16/2019 [facility] Bagum Camacho J06.9 Acute upper 2:00p Medicine - Ccmob AMARILYS Tong respiratory infection, unspecified H61.23 Impacted cerumen, bilateral Office Visit 2019 11:40a [facility] Lela N39.0 Urinary tract Medicine Samuel Vega M.D. infection, site Ccmob not specified E11.9 Type 2 diabetes mellitus without complications Office Visit 11/12/2018 3:40p [facility] Internal Medicine Lela Vega M.D. R05 Cough - Ccmob R53.81 Other malaise Office Visit 11/08/2018 [facility] Samson Silvestre, BEACH ATTENDANT H10.023 Other mucopurulent 11:00a Medicine - conjunctivitis, Ccmob bilateral Office Visit 11/06/2018 [facility] Lela R05 Cough 10:00a Niels Vega M.D. Ccmob Assessments Date Code Description Provider 04/16/2019 J06.9 Acute upper respiratory infection, Bagum Camacho Gunorberto , BEACH ATTENDANT unspecified 04/16/2019 H61.23 Impacted cerumen, bilateral Jacililli Jonathancandace Tong BEACH ATTENDANT 03/07/2019 Z00.00 Encounter for general adult medical Lela Vega M.D. examination without abnormal findings 03/07/2019 E11.65 Type 2 diabetes mellitus with Lela Vega M.D. hyperglycemia 03/07/2019 I10 Essential (primary) hypertension Lela Vega M.D. 03/07/2019 D64.9 Anemia, unspecified Lela Vega M.D. 2019 N39.0 Urinary tract infection, site not Lela Vega M.D. specified 2019 E11.9 Type 2 diabetes mellitus without Lela Vega M.D. complications 11/12/2018 R05 Cough Lela Vega M.D. 11/12/2018 R53.81 Other malaise Lela Vega M.D. 11/08/2018 H10.023 Other mucopurulent conjunctivitis, Samson Silvestre, BEACH ATTENDANT bilateral 11/06/2018 R05 Cough Lela Vega M.D. Plan of Treatment Future Appointment(s):07/12/2019 1:00 pm - Lela Vega M.D. at [facility] Internal Medicine - [facility]04/16/2019 - Cierra Camacho Tong, NPJ06.9 Acute upper respiratory infection, unspecifiedComments:- Sending Flu swab today. Will call with results as soon as we get them back. - I am ordering chest x-ray. Please get it done ANNE.Follow up:as [id number] Impacted cerumen, bilateral Functional Status Description No Information Available Mental Status Description No Information Available Referrals Refer to Reason for Referral Status Appt Date Juliano Parra MD Sent [facility]/11/2019 [address] [facility] [place] [address] [place] [address] [phone]
--- OUTSIDE RECORDS SUMMARY | 2019-04-21 09:06 | XMS REPORT | Continuity of Care Document ---
:1930 External Reference #:[id number] Author Name Lela Vega M.D. (transmitted by agent of provider Shahida Singh) Address [address], [place] [address] Care Team Providers Name Role Phone Lela Vega MD - Internal Care Team Information Entry Manager Medicine Rhonda Saldana MD - Internal Care Team Information Entry Manager [phone] Medicine Rhonda Palomares MD - Care Team Information Entry Manager [phone] Rheumatology Benson Sanders MD - Hematology Care Team Information Entry Manager Juliano Parra MD - Urology Care Team Information Entry Manager [phone] Problems Active Problems Provider Date Type 2 [...] Smoked 1ppd Unknown smoker Smoking Status Reviewed: 03/07/19 Patient is a former Smoked 1ppd smoker Exercise Exercises sporadically Type/Frequency Allergies, Adverse Reactions, Alerts Active Allergies Reaction Severity Comments Date Bactrim UNKNOWN 08/27/2009 Sulfa SICK ALL OVER Moderate 11/05/2009 Medications Active Medications SIG Qnty Indications Ordering Provider Date Dicyclomine HCL Take One Capsule 30caps Shaniec Salazar MD 06/22/2018 10mg By Mouth Three Capsules Times A Day as Needed Metformin HCL ER Take One Tablet 30tabs E11.65 [facility], 2018 500mg By Mouth Every M.D. Tablets ER 24HR Day E11.9 Olmesartan Medoxomil Take One Tablet 90tabs I10 [facility], 2018 20mg By Mouth Every M.D. Tablets Day Felodipine ER Take One Tablet 90tabs I10 [facility], 12/05/2016 2.5mg By Mouth Every M.D. Tablets ER 24HR Day Onetouch Ultra Blue for use bid E 180units E11.9 [facility], 2016 11.9 M.D. Strips Repaglinide Take 1 Tab Before 120tabs E11.65 [facility], 11/14/2014 0.5mg Tablets Lunch And 1 Tab. M.D. Before Dinner E11.9 Alprazolam take one tablet by 30tabs [facility], 06/02/2014 0.25mg Tablets mouth twice a day M.D. as needed maximum daily dose = two tablets Mirtazapine Take One Tablet By 30tabs F41.9 [facility], 06/02/2014 7.5mg Tablets Mouth AT Bedtime M.D. Onetouch Ultra 2 check blood sugar 1units E11.65 [facility], 2013 W/Device twice a day or as M.D. Kit directed Onetouch Lancets for use twice a day 180units [facility], 2013 Mis or as directed M.DDieter E11.9 Calcium 500 1 by mouth bid Lexis Solitario M.D. 07/22/2013 500mg Tablets Levothyroxine Sodium Take One Tablet By 90tabs [facility], 2012 Mouth Every Day M.D. 50mcg Tablets Lovastatin Take One Tablet By 90tabs [facility], 08/02/2012 40mg Tablets Mouth AT Bedtime M.D. Multivitamin 1 PO qd Lela Gary, 03/21/2011 Sacha Omeprazole Take One Capsule By 90caps R11.0 Lela Gary, 06/21/2010 40mg Capsules Mouth Every Day Sacha HASTINGS Vitamin D 1 po qd 60caps Unknown 1000Iu Capsules Miralax dissolve 1 Unknown [id number] Packet teaspoonlul powder in 8 onces of water. take daily as needed History Medications Doxycycline Hyclate 1 tab by mouth 10tabs Lela 02/28/2019 - 100mg twice a day for Sacha Vega 03/06/2019 Tablets 5 days Cipro 1 tablet every 10tabs N39.0 Jigar Ross MD 02/23/2019 - 250mg Tablets 12 hours for 5 03/01/2019 days, then stop Doxycycline Hyclate 1 tab by mouth 14tabs N39.0 Lela 02/09/2019 - 100mg twice a day for Sacha Vega 02/23/2019 Tablets 7 days Macrobid 1 tab by mouth 10tabs N39.0 Lela 2019 - 100mg Tablets twice a day x 5 Sadia VegaDDieter 02/09/2019 days Levofloxacin 1 by mouth on 4tabs Lela 11/13/2018 - 500mg the first day, Sacha Vega 2019 Tablets then 1/2 by mouth every day for the next 6 days Ofloxacin (Ophthalmic) 2 drops each 10ml H10.023 Samson Rivers NP 2018 - eye four times 11/12/2018 0.3% Solution daily for 7 days. Doxycycline Hyclate 1 tab by mouth 14tabs Lela 11/06/2018 - 100mg twice a day for Sacha Vega 11/17/2018 Tablets 7 days Jane Ruffin take one 30caps Lela 11/06/2018 - 100mg capsule every 8 Sadia VegaDDieter 12/14/2018 Capsules hours as needed Nitrofurantoin 1 by mouth 14caps N30.00 Kavitha Colin, 10/08/2018 - Macrocrystal twice a day X 7 M.DDieter 10/15/2018 100mg days Capsules Immunizations CPT Code Status Date Vaccine Reaction Lot # [id number] Given 12/18/2018 Fluzone High Dose 94364 Given 11/06/2017 Fluzone High Dose 38221 Given 11/04/2016 Influenza Virus Vaccine, [id number] Quadrivalent, Split, Preservative Free 86685 Given 01/04/2016 Influ Virus Vaccine, no immediate reaction [id number] Quadrivalent, Split Virus, noted ... [place] [address] Given 11/14/2014 Influenza Virus Vaccine, [id number] Quadrivalent, Split, Preservative Free 46452 Given 11/18/2013 Influenza Virus Vaccine, [id number] Quadrivalent, Split, Preservative Free 31631 Given 06/17/2013 Pneumococcal Conjugate [id number] Vaccine 13 Valent For Intramuscular Use 86646 Given 11/22/2012 Flu Vaccine Split Virus [id number] Preservative Free For Indiv 3Yr Older Q2038 Given 11/05/2011 Fluzone Vaccine [id number] Given 11/02/2010 Afluria Vaccine [id number] 74829 Given 11/06/2009 Influenza Virus 3Yrs & Over 99233 Given 01/29/2009 Influenza Virus Vaccine, Pandemic Formulation 71103 Given 11/25/2008 Influenza Virus 3Yrs & Over 56697 Given 12/10/2007 Influenza Virus 3Yrs & Over 40069 Given 12/10/2007 Influenza Virus 3Yrs & Over 69482 Given 12/12/2006 Influenza Virus 3Yrs & Over 94752 Given 12/12/2006 Influenza Virus 3Yrs & Over 74576 Given 06/05/2006 Tetanus And Diptheria (Td) For Adult Use Preservative Free Vital Signs Date Vital Result Comment 03/07/2019 3:20pm Height 59 inches 4'11" Weight 123.00 lb Heart Rate 83 /min BP Systolic 123 mmHg BP Diastolic 69 mmHg O2 % BldC Oximetry 95 % BMI (Body Mass Index) 24.8 kg/m2 2019 11:46am Height 59 inches 4'11" Weight 125.00 lb Heart Rate 86 /min BP Systolic 140 mmHg BP Diastolic 69 mmHg BP Systolic Sitting 126 mmHg recheck Body Temperature 97.1 F O2 % BldC Oximetry 96 % BMI (Body Mass Index) 25.2 kg/m2 Results Test Acquired Date Facility Test Result H/L Range Note Laboratory test 03/07/2019 [facility] Hemoglobin A1c 7.7 High 5-7 finding Ua Routine 2019 [facility] Ua Specific 1.020 [place] Ua PH 5 Ua Color dark yellow Ua Appera cloudy Ua WBC large Ua Protein norm Ua Glucose norm Ua Ketones large Ua Bilirubin neg Ua Urobilinogen neg Ua Nitrite positive Ua Occult Blood large Urine Culture And 2019 [facility] Urine SEE RESULT [address] [place] [address] [phone] CBC Auto Diff 11/12/2018 [facility] White Blood 13.2 High 3.5- [address] Count 10^3/uL 0.8 [place] [address] [phone] Red Blood Count 3.70 10^6/uL Normal 3.70-4.87 [...] Blood Cells % 0.1 Laboratory test 11/12/2018 [facility] C Reactive 97.05 mg/L High <8.[address] [place] [address] [phone] Basic Metabolic 11/12/2018 [facility] Sodium 132 mmol/L Low 135-[address] [place] [address] [phone] Chloride 98 mmol/L Low 101-111 Co2 Carbon Dioxide 24 mmol/L Normal 22-32 Glucose 252 mg/dL High 70-100 Blood Urea Nitrogen 23 mg/dL Normal 6-24 Creatinine 1.12 mg/dL High 0.51-0.95 BUN/Creatinine Ratio 20.5 High 8-20 Calcium 9.8 mg/dL Normal 8.6-10.3 Egfr Non- 45.9 >60 Egfr 55.6 >60 2 Potassium 5.2 mmol/L High 3.5-5.0 Anion Gap 10 mmol/L Normal 2-11 Laboratory test 11/06/2018 [facility] Influenza A & B <pending> finding [address] [place] [address] [phone] Lipid Profile 10/22/2018 [facility] Triglycerides 231 mg/dL 3 (Trig/Chol/HDL) [address] [place] [address] [phone] Cholesterol 191 mg/dL 4 HDL Cholesterol 66.6 mg/dL 5 LDL Cholesterol 78 mg/dL 6 Comp Metabolic 10/22/2018 [facility] Sodium 135 mmol/L Normal 135-[address] [place] [address] [phone] Potassium 5.0 mmol/L Normal 3.5-5.0 Chloride 103 [...] Egfr Non- 45.0 >60 Egfr 54.4 >60 7 Laboratory test 10/22/2018 [facility] Hemoglobin A1c 7.4 % High 4.0-5.[address] (Glyco HGB) [place] [address] [phone] Urine 10/22/2018 [facility] Ur Microalbumin < 15.[address] (mg/L) mg/[place] [address] [phone] Urine Creatinine 82.44 mg/dL Urine Microalbumin/Creatinine TNP <31 9 Laboratory test 10/22/2018 [facility] Vitamin B12 686 pg/mL Normal 180-914 [address] [place] [address] [phone] TSH (Thyroid Stim Horm) 5.15 mcIU/mL Normal 0.34-5.60 Urine Culture And 10/08/2018 [facility] Urine Culture SEE RESULT [address] [place] [address] [phone] Ua Routine 10/08/2018 [facility] Ua Specific 1.005 [place] Ua PH 56 Ua Color light yellow Ua Appera clear Ua WBC ++ Ua Protein trace Ua Glucose trace Ua Ketones - Ua Bilirubin - Ua Urobilinogen 1 Ua Nitrite - Ua Occult Blood 250+ Laboratory test finding 09/21/2018 [facility] Hemoglobin A1c 7.5 High 5 -7 1 SEE RESULT BELOW Name: MICHELLE CAN : [address]: Lela Vega MD Acct: [id number] Unit: [id number] AGE: 89 Location: [facility] Re02/07/19 SEX: F Status: REG REF SPEC: [id number] BACILIO: 02/07/[address] [facility] [address]: Lela Vega MD REQ: [id number] RECD: 02/08/19 STATUS: COMP _ SOURCE: URINE SPDESC: ORDERED: Urine Culture COMMENTS: ORDERED AGAIN PER [id number] Urine Source: Random Procedure Result Reported Site Urine Culture Final 02/10/19- 0832 ML Organism 1 ENTEROBACTER CLOACAE [place] Count >100,000 (Many) CFU/ML 1. ENTEROBACTER CLOACAE [...] . END OF REPORT DEPARTMENT OF PATHOLOGY, [address] [place] [address] Swapnil Reilly M.D. Director [facility] # [id number] 2 Because ethnic data is not always [...] 5 Kidney failure <15 (or dialysis) 3 Desirable: <150 Borderline High: 150-199 High: 200-499 Very High: >500 4 Desirable: <200 Borderline High: 200-239 High: >239 5 Low: <40 Desirable: 40-60 High: >60 6 Desirable: <100 Near Optimal: 100-129 Borderline High: 130-159 High: 160-189 Very High: >189 7 Because ethnic data is not always readily [...] 15-29 5 Kidney failure <15 (or dialysis) 8 Therapeutic target for the treatment of diabetes mellitus patients is <7% HBA1C, and in selective patients <6.0%. Please refer to [place] [employer] diabetic care guidelines for further information. 9 Unable to calculate due to low microalbumin 10 Normal Range 180 to 914 Indeterminate Range 145 to 180 Deficient Range <145 11 SEE RESULT BELOW Name: MICHELLE CAN : [address]: Kavitha Colin MD Acct: [id number] Unit: [id number] AGE: 88 Location: [facility] Re10/08/18 SEX: F Status: REG REF SPEC: [id number] BACILIO: 10/08/18-[address] [facility] [address]: Kavitha Colin MD REQ: [id number] RECD: 10/09/181146 STATUS: COMP _ SOURCE: URINE SPDESC: ORDERED: Urine Culture COMMENTS: [id number] Procedure Result Reported Site Urine Culture Final 10/10/18- 1231 ML No Growth (<1,000 CFU/mL) * ML - Main Lab . END OF REPORT DEPARTMENT OF PATHOLOGY, [address] [place] [address] Swapnil Reilly M.D. Director [facility] # [id number] Procedures Date Code Description Status 02/16/2018 [id number] Diabetic Retinal Eye Exam Completed 11/01/2016 [id number] Mammogram Completed 01/12/2016 [id number] Bone Mineral Density Test Completed 11/12/2015 012462046 Diabetic Retinal Eye Exam Completed 11/08/2013 [id number] Bone Mineral Density Test Completed 07/06/2013 755903317 Diabetic Retinal Eye Exam Completed 07/06/2012 434131269 Diabetic Retinal Eye Exam Completed 10/28/2011 978588069 Bone Mineral Density Test Completed 10/28/2011 555804674 Diabetic Retinal Eye Exam Completed 08/30/2011 [id number] Mammogram Completed 08/22/2008 913688533 Bone Mineral Density Test Completed 07/15/2008 09333689 Mammogram Completed 06/21/2006 42049064 Colonoscopy Completed Medical Devices Description No Information Available Encounters Type Date Location Provider Dx Diagnosis Office Visit 2019 [facility] Internal Lela Vega, N39.0 Urinary tract 11:40a Medicine - Cher Thompson.Gurdeep infection, site not specified E11.9 Type 2 diabetes mellitus without complications Office Visit 11/12/2018 3:40p [facility] Internal Medicine Lela Vega M.D. R05 Cough - Nimoob R53.81 Other malaise Office Visit 11/08/2018 [facility] Internal Samson Silvestre, [employer] H10.023 Other mucopurulent 11:00a Medicine - conjunctivitis, Ccmob bilateral Office Visit 11/06/2018 [facility] Internal Lela R05 Cough 10:00a Niels Vega M.D. Ccmob Office Visit 10/08/2018 [facility] Internal Kavitha Colin R30.0 Dysuria 12:10p Niels Baker M.D. Ccmob N30.00 Acute cystitis without hematuria Office Visit 09/21/2018 11:40a [facility] Internal Lela E11.9 Type 2 diabetes Niels Vega M.D. mellitus without Ccmob complications Z79.84 detention (current) use of oral hypoglycemic drugs E03.9 Hypothyroidism, unspecified Assessments Date Code Description Provider 03/07/2019 Z00.00 Encounter for general adult medical Lela Vega M.D. examination without abnormal findings 03/07/2019 E11.65 Type 2 diabetes mellitus with hyperglycemia Lela Vega M.D. 03/07/2019 I10 Essential (primary) hypertension Lela Vega M.D. 03/07/2019 D64.9 Anemia, unspecified Lela Vega M.D. 2019 N39.0 Urinary tract infection, site not specified Lela Vega M.D. 2019 E11.9 Type 2 diabetes mellitus without Lela Vega M.D. complications 11/12/2018 R05 Cough Lela Vega M.D. 11/12/2018 R53.81 Other malaise Lela Vega M.D. 11/08/2018 H10.023 Other mucopurulent conjunctivitis, Samson Silvestre, [employer] bilateral 11/06/2018 R05 Cough Lela Vega M.D. 10/08/2018 R30.0 Dysuria Kavitha Colin M.D. 10/08/2018 N30.00 Acute cystitis without hematuria Kavitha Colin M.D. 09/21/2018 E11.9 Type 2 diabetes mellitus without Lela Vega M.D. complications 09/21/2018 Z79.84 detention (current) use of oral Lela Vega M.D. hypoglycemic drugs 09/21/2018 E03.9 Hypothyroidism, unspecified Lela Vega M.D. Plan of Treatment Future Appointment(s):07/12/2019 1:00 pm - Lela Vega M.D. at [facility] Internal Medicine - [facility]03/07/2019 - Lela Vega M.D.Z00.00 Encounter for general adult medical examination without abnormal findingsComments:VACCINES :Flu shot every year in the fall. Done in [place]: last one done in 2006. You are due for a booster if you get hurtPneumonia vaccines: Pneumovax: done in 1996 Prevnar: done in 2013Shingles vaccine: Zostavax: 50% effectiveShingrix: 90% effective. This is a new shingles vaccine, available at pharmacies. Series of 2 shots, given 2-6 months apart. Most people get a flu- like reaction. Cost is about $400 - call your insurance about coverage. Not widely available - talk to your pharmacist about their waiting list SCREENING: Colonoscopy: last one done 2006. Colon cancer screening not usually done after age 75Mammogram: last done in 2016Pap smear: not needed after age 65Bone density (DEXA): last done in December 2015Cholesterol: checked in June 2017Screening for diabetic eye disease and glaucoma: every year unless otherwise instructed by your eye doctor. Last visit on file 02/16/18 ADVANCE DIRECTIVE: It would be good for us to have a copy of your health care proxy and advanced directive onfile here.E11.65 Type 2 diabetes mellitus with hyperglycemiaComments:Your A1C today is 7.7 which is OK.Goal is to be under 8.0Follow up:4 months for [id number] Essential (primary) hypertensionComments: Your blood pressure is fine. Continue the same [id number] Anemia, unspecifiedNew Labs:CBC Auto Diff, Ordered: 03/07/19Iron & Iron Binding Capacity, Ordered: 03/07/19Basic Metabolic Panel, Ordered: 03/07/19Comments: Please do blood test Functional Status Description No Information Available Mental Status Description No Information Available Referrals Refer to Reason for Referral Status Appt Date Juliano Prara MD Sent [address] [place] [address] [place] [address] [phone]
--- NOTE | 2019-04-21 09:19 | ED ---
GI/ HPI - HPI Summary HPI Summary: This patient is an 89 year old F presenting to ED with a chief complaint of abdominal pain and increased hematuria since this morning. Patient states she was recently diagnosed with hematuria but no bladder infection per urinalysis on 04/18/2019 and has taken one dose of doxycycline since then. Patient has had a chronic UTI for the past several months and has an appointment scheduled with Dr. Parra, urologist. Patient states she had a pessary, however she took it out because she thought it might be contributing to her infection and pain. The patient rates the pain 10/10 in severity. Symptoms aggravated by ambulation, palpation, and urination. Symptoms alleviated by nothing. Patient reports nausea. Patient denies fevers, vomiting, and diarrhea. Home Medications Medication Instructions Recorded Confirmed Type Felodipine (NF) [Plendil (NF)] 2.5 mg PO DAILY 11/03/12 04/21/19 History Lovastatin (NF) [Mevacor (NF)] 40 mg PO BEDTIME 11/03/12 04/21/19 History Olmesartan (NF) [Benicar (NF)] 20 mg PO QAM 11/03/12 04/21/19 History Omeprazole CAP (NF) [Prilosec CAP*] 40 mg PO DAILY 11/03/12 04/21/19 History Repaglinide TAB* [Prandin*] 0.5 mg PO SEE INSTRUCTIONS 11/03/12 04/21/19 History ALPRAZolam TAB* [Xanax TAB*] 0.25 mg PO BID PRN 07/30/15 04/21/19 History Calcium Carbonate [Calcium 600] 600 mg PO BID 08/01/15 04/21/19 History Cholecalciferol TAB* [Vitamin D 1,000 unit PO DAILY 08/01/15 04/21/19 History TAB*] Levothyroxine TAB* [Synthroid TAB*] 50 mcg PO DAILY 08/01/15 04/21/19 History Polyethylene Glycol 3350 [Miralax] 17 gm PO 07/29/18 History metFORMIN* [Glucophage 500 MG TAB 500 mg PO DAILY 07/29/18 04/21/19 History *] - History of Current Complaint Chief Complaint: EDUrogenitalProblems Time Seen by Provider: 04/21/19 09:09 Stated Complaint: ABDOMINAL PAIN AND URINATING BLOOD PER PT Hx Obtained From: Patient Onset/Duration: Started Hours Ago - This morning, Still Present Timing: Constant Severity: Severe Current Severity: Severe Pain Intensity: 10 Location of Pain: Diffuse - Lower abdomen, Other Associated Signs and Symptoms: Positive: Nausea, Hematuria, Abdominal Pain. Negative: Vomiting, Diarrhea, Fever Aggravating Factor(s): Palpation, Urination, Walking/Exertion Alleviating Factor(s): Nothing - Allergy/Home Medications Allergies/Adverse Reactions: Allergies Allergy/AdvReac Type Severity Reaction Status Date / Time Sulfa (Sulfonamide Allergy n/v Verified 04/21/19 09:01 Antibiotics) sulfamethoxazole Allergy n/v Verified 04/21/19 09:01 [From Bactrim] trimethoprim [From Bactrim] Allergy n/v Verified 04/21/19 09:01 Home Medications: Home Medications Felodipine (NF) [Plendil (NF)] 2.5 mg PO DAILY 11/03/12 [History Confirmed 04/20] Lovastatin (NF) [Mevacor (NF)] 40 mg PO BEDTIME 11/03/12 [History Confirmed 10/02] Olmesartan (NF) [Benicar (NF)] 20 mg PO QAM 11/03/12 [History Confirmed 04/21/19 ] Omeprazole CAP (NF) [Prilosec CAP* 20 MG] 40 mg PO DAILY 11/03/12 [History Confirmed 04/21/19] Repaglinide TAB* [Prandin TAB*] 0.5 mg PO SEE INSTRUCTIONS 11/03/12 [History Confirmed 04/21/19] ALPRAZolam TAB* [Xanax TAB*] 0.25 mg PO BID PRN 07/30/15 [History Confirmed 10/02] Calcium Carbonate [Calcium] 600 mg PO BID 08/01/15 [History Confirmed 04/21/19] Cholecalciferol TAB* [Vitamin D TAB*] 1,000 unit PO DAILY 08/01/15 [History Confirmed 04/21/19] Levothyroxine TAB* [Synthroid TAB*] 50 mcg PO DAILY 08/01/15 [History Confirmed 04/21/19] Polyethylene Glycol 3350 [Miralax] 17 gm PO DAILY 07/29/18 [History Confirmed ] metFORMIN* [Glucophage 500 MG TAB *] 500 mg PO DAILY 07/29/18 [History Confirmed 04/21/19] Ciprofloxacin TAB* [Cipro 250 MG Tab*] 250 mg PO BID #14 tab 04/21/19 [Rx] PMH/Surg Hx/FS Hx/Imm Hx Endocrine/Hematology History: Reports: Hx Diabetes - type 2 dm, Hx Thyroid Disease, Hx Anemia - in the past Denies: Hx Anticoagulant Therapy, Hx Systemic Lupus Erythematosus Cardiovascular History: Reports: Hx Hypercholesterolemia, Hx Hypertension, Other Cardiovascular Problems/Disorders - IDDM II Denies: Hx Congestive Heart Failure, Hx Deep Vein Thrombosis, Hx Myocardial Infarction, Hx Pacemaker/ICD Respiratory History: Denies: Hx Asthma, Hx Chronic Obstructive Pulmonary Disease (COPD), Hx Lung Cancer, Hx Pneumonia, Hx Pulmonary Embolism GI History: Reports: Hx Hiatal Hernia, Hx Jaundice - as a child, Other GI Disorders - indigestion Denies: Hx Gall Bladder Disease, Hx Gastrointestinal Bleed, Hx Ulcer, Hx Urosepsis History: Denies: Hx Dialysis, Hx Kidney Stones, Hx Renal Disease Musculoskeletal History: Reports: Hx Arthritis, Hx Osteoporosis, Other Musculoskeletal History - polymyalgia Denies: Hx Rheumatoid Arthritis Sensory History: Reports: Hx Cataracts - thu, Hx Contacts or Glasses, Hx Glaucoma - mild Denies: Hx Hearing Aid Opthamlomology History: Reports: Hx Cataracts - thu, Hx Contacts or Glasses, Hx Glaucoma - mild Neurological History: Denies: Hx Dementia, Hx Migraine, Hx Seizures, Hx Transient Ischemic Attacks (TIA), Other Neuro Impairments/Disorders Psychiatric History: Reports: Hx Anxiety Denies: Hx Depression, Hx Schizophrenia, Hx Bipolar Disorder - Cancer History Hx Chemotherapy: No - Surgical History Surgery Procedure, Year, and Place: THYROID?; TUBAL LIGATION Hx Anesthesia Reactions: No Infectious Disease History: No Infectious Disease History: Denies: Traveled Outside the [place] in Last 30 Days - Family History Known Family History: Positive: Cardiac Disease, Hypertension - Social History Alcohol Use: Daily Alcohol Amount: socially Hx Substance Use: No Substance Use Type: Reports: None Hx Tobacco Use: Yes Smoking Status (MU): Never Smoked Tobacco Amount Used/How Often: pack a day for 10 yrs Have You Smoked in the Last Year: No Review of Systems Negative: Fever Positive: Abdominal Pain, Nausea. Negative: Vomiting, Diarrhea Positive: hematuria All Other Systems Reviewed And Are Negative: Yes Physical Exam - Summary Physical Exam Summary: VITAL SIGNS: Reviewed. GENERAL: Patient is a well-developed and nourished female who is lying comfortable in the stretcher. Patient is not in any acute respiratory distress. HEAD AND FACE: Normocephalic and atraumatic. EYES: PERRLA, EOMI x 2, No injected conjunctiva. EARS: Hearing grossly intact. Ear canals and tympanic membranes are WNL. MOUTH: Oropharynx within normal limits. NECK: Supple, trachea is midline, no adenopathy, no JVD. CHEST: Symmetric, no tenderness at palpation. LUNGS: Clear to auscultation bilaterally. No wheezing or crackles. CVS: RRR, S1 and S2 present, no murmurs or gallops appreciated. ABDOMEN: Tenderness in lower abdomen. EXTREMITIES: FROM in all major joints, no edema, no cyanosis or clubbing. NEURO: Alert and oriented x 3. No acute neurological deficits. Speech is normal. SKIN: Dry and warm. Triage Information Reviewed: Yes Vital Signs On Initial Exam: Initial Vitals Temp Pulse Resp BP Pulse Ox 98.6 F 94 16 168/85 98 04/21/19 08:57 04/21/19 08:57 04/21/19 08:57 04/21/19 08:57 04/21/19 08:57 Vital Signs Reviewed: Yes Procedures - Sedation Patient Received Moderate/Deep Sedation with Procedure: No Diagnostics - Vital Signs Vital Signs Temp Pulse Resp BP Pulse Ox 04/21/19 08:57 98.6 F 94 16 168/85 98 - Laboratory Result Diagrams: 04/21/19 09:18 04/21/19 09:18 Lab Statement: Any lab studies that have been ordered have been reviewed, and results considered in the medical decision making process. - CT Urogram CT Interpretation Completed By: Radiologist Summary of CT Findings: 1. MILD CIRCUMFERENTIAL URINARY BLADDER WALL THICKENING WITH PERIVESICAL STRANDING: CORRELATE WITH URINALYSIS. 2. SMALL URACHAL DIVERTICULUM. 3. 1.3 CM LEFT ADNEXAL CYST. 4. LARGE HIATAL HERNIA. 5. DIVERTICULOSIS WITH NO SECONDARY SIGNS OF INFLAMMATION. Dr. Carlin has reviewed this radiology report. Re-Evaluation - Re-Evaluation First Eval Re-Evaluation Time: 13:15 Comment: Discussed results with patient. Patient will be discharged home with dx of gross hematuria and cystitis. Patient understands and agrees with this plan. GIGU Course/Dx - Course Assessment/Plan: This patient is an 89 year old F presenting to ED with a chief complaint of abdominal pain and increased hematuria since this morning. Patient states she was recently diagnosed with hematuria but no bladder infection per urinalysis and is on antibiotics since 04/18/2019. Patient has had a chronic UTI for the past several months and has an appointment scheduled with Dr. Parra, urologist. Patient states she had a pessary, however she took it out because she thought it might be contributing to her infection and pain. The patient rates the pain 10/10 in severity. Symptoms aggravated by ambulation, palpation, and urination. Symptoms alleviated by nothing. Patient reports nausea. Patient denies fevers, vomiting, and diarrhea. 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 Past medical records reviewed. Blood test w/o a significant abnormality except for sodium 133, crit 21, creatinine 1.01, glucose 188 and CRP are 9.99. Urinalysis obtained with gross hematuria. I discussed the case with Dr. Parra from urology and he recommends to get a CT urogram and to treat the patient with [address] urogram IMPRESSION: 1. MILD CIRCUMFERENTIAL URINARY BLADDER WALL THICKENING WITH PERIVESICAL STRANDING: CORRELATE WITH URINALYSIS. 2. SMALL URACHAL DIVERTICULUM. 3. 1.3 CM LEFT ADNEXAL CYST. 4. LARGE HIATAL HERNIA. 5. DIVERTICULOSIS WITH NO SECONDARY SIGNS OF INFLAMMATION. As per recommendation from Dr. Parra patient will be given a prescription for Ciprofloxacin and discharge home with F/U with Dr. Parra as well as PCP. I discussed all the findings and test results with the patient. Patient was instructed to return to the emergency room immediately if any of the symptoms return worsens. Plan of care was discussed with the patient and understands and agrees. All questions were answered at patient satisfaction. There were no further complaints or concerns. Lung exam before discharge: CTA B/L. Good air exchange. No wheezing or crackles heard. CVS: S1 and S2 present. No murmurs appreciated. Patient is alert and oriented x 3. Patient is hemodynamically stable. Patient will be discharged home. - Diagnoses Provider Diagnoses: Gross hematuria, Cystitis - Physician Notifications Discussed Care Of Patient With: Juliano Parra Time Discussed With Above Provider: 10:05 Instructed by Provider To: Other - Discussed patient case with Dr. Parra, urologist, who agreed with a CT urogram and giving Rocephin. Discharge ED - Sign-Out/Discharge Documenting (check all that apply): Patient Departure - Discharge - Discharge Plan Condition: Stable Disposition: HOME Prescriptions: Ciprofloxacin TAB* [Cipro 250 MG Tab*] 250 mg PO BID #14 tab Patient Education Materials: Hematuria (ED), Interstitial Cystitis (ED), Urinary Tract Infection in Older Adults (ED) Referrals: Lela Vega MD [Primary Care Provider] - 3 Days Juliano Parra MD [Medical Doctor] - 3 Days Additional Instructions: FOLLOW UP WITH YOUR PRIMARY CARE PROVIDER AND WITH UROLOGY WITHIN ONE WEEK FOR YOUR SYMPTOMS NOTED TODAY. RETURN TO THE ED FOR ANY WORSENING OR NEW SYMPTOMS. - Billing Disposition and Condition Condition: STABLE Disposition: Home - Attestation Statements Document Initiated by Scribe: Yes Documenting Scribe: Kaden De Anda Provider For Whom Scribe is Documenting (Include Credential): Donis Carlin MD Scribe Attestation: IKaden, scribed for Donis Carlin MD on 04/22/19 at 0714. Scribe Documentation Reviewed: Yes Provider Attestation: The documentation as recorded by the Kaden ayala accurately reflects the service I personally performed and the decisions made by me, Donis Carlin MD Status of Scribe Document: Viewed
[2019-04-21 09:29] LABS: ABS Basophils 0.1 10^3/ul (0-0.2); ABS Eosinophils 0.1 10^3/ul (0-0.6); ABS Lymphocytes 2.9 10^3/ul (1.0-4.8); ABS Monocytes 0.8 10^3/ul (0-0.8); ABS Neutrophils 6.8 10^3/ul (1.5-7.7); Eosinophil % 1.3 %; Hematocrit 35 % (35-47); Lymphocyte % 27.3 %; Mean Corpuscular HGB Conc 34 g/dL (31-36); Mean Corpuscular Hemoglobin 31 pg (27-31); Mean Corpuscular Volume 90 fL (80-97); Mean Platelet Volume 7.9 fL (7.4-10.4); Platelet Count 331 10^3/uL (150-450); Red Blood Count 3.93 10^6 /uL (3.70-4.87); Red Cell Distribution Width 13 % (10-15); White Blood Count 10.7 10^3/uL (3.5-10.8)
[2019-04-21 09:42] LABS: Urine Appearance Turbid; Urine Color Red; Urine Specific Gravity 1.017 (1.010-1.030)
[2019-04-21 09:46] LABS: Albumin 4.3 g/dL (3.2-5.2); Albumin/Globulin Ratio 1.5 (1-3); BUN/Creatinine Ratio 20.8 (8-20); C Reactive Protein 9.99 mg/L (<8.01); Calcium 9.9 mg/dL (8.6-10.3); EGFR African American 62.4 (>60); EGFR Non-African American 51.6 (>60); Globulin 2.8 g/dL (2-4); Potassium 4.4 mmol/L (3.5-5.0); Total Bilirubin 0.3 mg/dL (0.2-1.0); Total Protein 7.1 g/dL (6.4-8.9)
[2019-04-21 09:47] LABS: Urine Bacteria Absent (Absent); Urine Red Blood Cell 3+(>10/hpf) (Absent); Urine White Blood Cell Absent (Absent)
[2019-04-21] MEDS ORDERED: cefTRIAXone(*) 1 GM in NS 0.9% 50 ML* 50 ML IVPB ONE (10:10)
[2019-04-21] MEDS ORDERED: Iodixanol* (CONTRAST) 320 MG/ML 100 ML SDV IV ONE (10:17)
[2019-04-21 13:27] VITALS: BP 149/113
== END 2019-04-21 13:16 | disposition home or self-care (01) ==
LOC: ED 08:56
DX: R31.0 Gross hematuria (principal); N30.90 Cystitis, unspecified without hematuria; R10.9 Unspecified abdominal pain; R11.0 Nausea; E03.9 Hypothyroidism, unspecified; E11.9 Type 2 diabetes mellitus without complications; E78.00 Pure hypercholesterolemia, unspecified; I10 Essential (primary) hypertension; Z86.79 Personal history of other diseases of the circulatory system; F41.9 Anxiety disorder, unspecified; Z79.899 Other long term (current) drug therapy; Z88.2 Allergy status to sulfonamides
CPT/HCPCS: 36415; 74178; 76377; 80053; 81003; 83605; 83690; 85025; 86140; 87040; 96365; 99283; J0696; Q9967